=== PATIENT | male | born 1975 | race American Indian/Alaskan Native ===

== ENCOUNTER 2019-10-23 17:34 | Emergency (ER) | payer SELFPAY ==
--- NOTE | 2019-10-23 18:58 | Emergency Department Report ---
Blank Doc - Documentation Documentation: 43-year-old male that presents with right flank pain. This initial assessment/diagnostic orders/clinical plan/treatment(s) is/are subject to change based on patient's health status, clinical progression and re- assessment by fellow clinical providers in the ED. Further treatment and workup at subsequent clinical providers discretion. Patient/guardians urged not to elope from the ED as their condition may be serious if not clinically assessed and managed. Initial orders include: 1- Patient sent to [facility] for further evaluation and treatment 2- UA
[2019-10-23 19:44] LABS: Basophils # (Auto) 0.1 K/mm3 (0.0-0.1); Basophils % (Auto) 0.9 % (0.0-1.8); Eosinophils # (Auto) 0.2 K/mm3 (0.0-0.4); Eosinophils % (Auto) 2.3 % (0.0-4.3); Hemoglobin 12.8 gm/dl (11.8-15.2); Lymphocytes # (Auto) 2.7 K/mm3 (1.2-5.4); Lymphocytes % (Auto) 30.2 % (13.4-35.0); Mean Corpuscular HGB Conc 34 % (32-34); Mean Corpuscular Volume 85 fl (84-94); Monocytes # (Auto) 0.7 K/mm3 (0.0-0.8); Monocytes % (Auto) 7.4 % (0.0-7.3); Platelet Count 231 K/mm3 (140-440); Red Blood Count 4.47 M/mm3 (3.65-5.03); Red Cell Distribution Width 14.2 % (13.2-15.2)
[2019-10-23 20:01] LABS: Albumin 3.8 g/dL (3.9-5); Calcium 9.4 mg/dL (8.4-10.2)
[2019-10-23 21:24] LABS: Bilirubin,Urine NEG (Negative); Blood,Urine SM (Negative); Color,Urine Yellow (Yellow); Urobilinogen,Urine < 2.0 mg/dL (<2.0)
[2019-10-23] MEDS ORDERED: MORPHINE 4 MG/1 ML INJ IV ONE (23:10)
[2019-10-23] MEDS ORDERED: ONDANSETRON 4 MG/2 ML INJ IV ONE (23:10)
[2019-10-23] MEDS ORDERED: SODIUM CHLORIDE 0.9% 1000 ML 1,000 ML IV ONE (23:10)
--- NOTE | 2019-10-24 00:07 | Emergency Department Report ---
ED Abdominal Pain HPI - General Chief Complaint: Back Pain/Injury Stated Complaint: BACK PAIN, STOMACH Time Seen by Provider: 10/23/19 18:56 Source: patient Mode of arrival: Ambulatory Limitations: No Limitations - History of Present Illness Initial Comments: Mr. Mallory is a 43 y/o aam with hx of DMII, and HTN ,who presents of flank, back , and abd pain x 4 days hx of same 6 months, ago pt complains of associated nausea and vomiiting, symptoms are exacerbated by po intake, symptoms are relieved by nothing tried. pt denies fever or chills. MD Complaint: abdominal pain, flank pain Onset/Timin -: days(s) Location: R flank Radiation: back Migration to: no migration Severity: moderate Severity scale (0 -10): 6 Quality: aching, sharp Consistency: intermittent Improves With: nothing Worsens With: eating, movement, other (voiding) Associated Symptoms: nausea, vomiting, dysuria - Related Data Previous Rx's Medication Instructions Recorded Last Taken Type Ciprofloxacin HCl [Ciprofloxacin 500 mg PO BID 10 Days #20 tab 10/24/19 Unknown Rx TAB] Omeprazole 40 mg PO DAILY #30 capsule. 10/24/19 Unknown Rx Allergies Allergy/AdvReac Type Severity Reaction Status Date / Time No Known Allergies Allergy Unverified 10/23/19 23:46 ED Review of Systems ROS: Stated complaint: BACK PAIN, STOMACH Other details as noted in HPI Constitutional: denies: chills, fever Eyes: denies: eye pain, eye discharge, vision change ENT: denies: ear pain, throat pain Respiratory: denies: cough, shortness of breath, wheezing Cardiovascular: denies: chest pain, palpitations Endocrine: no symptoms reported Gastrointestinal: abdominal pain, nausea, vomiting. denies: diarrhea, constipation, melena Genitourinary: urgency, dysuria, frequency. denies: hematuria, discharge Musculoskeletal: back pain Skin: denies: rash, lesions Neurological: denies: headache, weakness, paresthesias Psychiatric: denies: anxiety, depression Hematological/Lymphatic: denies: easy bleeding, easy bruising ED Past Medical Hx - Past Medical History Previous Medical History?: Yes Hx Diabetes: Yes - Surgical History Past Surgical History?: No - Social History Smoking Status: Never Smoker Substance Use Type: None - Medications Home Medications: Home Medications Medication Instructions Recorded Confirmed Last Taken Type Ciprofloxacin HCl [Ciprofloxacin 500 mg PO BID 10 Days #20 tab 10/24/19 Unknown Rx TAB] Omeprazole 40 mg PO DAILY #30 capsule. 10/24/19 Unknown Rx ED Physical Exam - General Limitations: No Limitations General appearance: alert, in no apparent distress - Head Head exam: Present: atraumatic, normocephalic, normal inspection - Eye Eye exam: Present: normal appearance, PERRL, EOMI Pupils: Present: normal accommodation - ENT ENT exam: Present: mucous membranes moist - Neck Neck exam: Present: normal inspection, tenderness, full ROM. Absent: lymphad enopathy - Respiratory Respiratory exam: Present: normal lung sounds bilaterally. Absent: respiratory distress, wheezes, stridor, chest wall tenderness - Cardiovascular Cardiovascular Exam: Present: regular rate, normal rhythm, normal heart sounds. Absent: systolic murmur, diastolic murmur, rubs, gallop - GI/Abdominal GI/Abdominal exam: Present: soft, tenderness (super pubic right flank), normal bowel sounds. Absent: distended, guarding, rebound, rigid, bruit, hernia - Rectal Rectal exam: Present: deferred - Extremities Exam Extremities exam: Present: normal inspection, full ROM, normal capillary refill. Absent: tenderness - Back Exam Back exam: Present: normal inspection, full ROM, tenderness, CVA tenderness (R). Absent: CVA tenderness (L), vertebral tenderness, rash noted - Neurological Exam Neurological exam: Present: alert, oriented X3, CN II-XII intact, normal gait - Psychiatric Psychiatric exam: Present: normal affect, normal mood - Skin Skin exam: Present: warm, dry, intact, normal color. Absent: rash ED Course Vital Signs 10/23/19 10/23/19 18:56 23:46 Temperature 97.9 F Pulse Rate 97 H Respiratory 18 16 Rate Blood Pressure 167/112 O2 Sat by Pulse 98 Oximetry ED Medical Decision Making - Lab Data Result diagrams: 10/23/19 19:13 10/23/19 19:13 Labs 10/23/19 10/23/19 10/23/19 19:13 19:13 Unknown WBC 8.9 RBC 4.47 Hgb 12.8 Hct 38.0 MCV 85 MCH 29 MCHC 34 RDW 14.2 Plt Count 231 Lymph % (Auto) 30.2 [place] % (Auto) 7.4 H Eos % (Auto) 2.3 Baso % (Auto) 0.9 Lymph # 2.7 [place] # 0.7 Eos # 0.2 Baso # 0.1 Seg Neutrophils % 59.2 Seg Neutrophils # 5.3 Sodium 140 Potassium 4.3 Chloride 100.2 Carbon Dioxide 25 Anion Gap 19 BUN 21 H Creatinine 1.9 H Estimated GFR 39 BUN/Creatinine Ratio 11 Glucose 167 H Calcium 9.4 Total Bilirubin 0.60 AST 16 ALT 17 Alkaline Phosphatase 83 Total Protein 8.3 H Albumin 3.8 L Albumin/Globulin Ratio 0.8 Lipase 581 H Urine Color Yellow Urine Turbidity Clear Urine pH 5.0 Ur Specific [place] 1.016 Urine Protein 100 mg/dl Urine Glucose (UA) 150 Urine Ketones Neg Urine Blood Sm Urine Nitrite Neg Urine Bilirubin Neg Urine Urobilinogen < 2.0 Ur Leukocyte Esterase Neg Urine WBC (Auto) 8.0 H Urine RBC (Auto) 5.0 - Radiology Data Radiology results: report reviewed, image reviewed Findings Reporting MD: Jesús Larson Dictation Time: October 23, 2019 23:13 Structural Layout Worker: Not available Assistant Clinical Nurse Manager Date: CT abdomen pelvis wo con INDICATION / CLINICAL INFORMATION: RENAL STONE PROTOCOL!! Right sided flank / a bd pain.. TECHNIQUE: All CT scans at this location are performed using CT dose reduction for ALARA by means of automated exposure control. COMPARISON: None available. FINDINGS: No free fluid is seen in the abdomen. No urinary tract stones are present. High density material is seen in the gallbladder most likely representing numerous small stones. The liver, spleen, pancreas, adrenal glands and great vessels are normal. No enlarged mesenteric or retroperitoneal lymph nodes are seen In the pelvis, no free fluid is seen. No enlarged lymph nodes are identified. The bladder and the appendix are normal. IMPRESSION: 1. High density material in the gallbladder most likely rep resenting numerous small stones 2. No acute findings Signer Name: Jesús Larson MD FACR Signed: 10/23/2019 11:13 PM Workstation Name: [id number] - Medical Decision Making CT demonstrates gallstones, normal pancreas, no cholecystitis no colitis, Lipase 583, patient is tolerating p.o. intake without nausea vomiting. CBC is normal. UA positive for leukocytes. Plan Cipro, omeprazole, naproxen as needed pain, patient will follow-up with PCP in 2 to 3 days, patient given referral to [place] [facility]. Patient states pain is 1/10 at this time and ready f or discharge. Patient is DC to home in stable condition at this time. Critical care attestation.: If time is entered above; I have spent that time in minutes in the direct care of this critically ill patient, excluding procedure time. ED Disposition Clinical Impression: Mild dehydration Cholelithiasis Qualifiers: Cholelithiasis location: gallbladder Cholecystitis presence: without cholecystitis Biliary obstruction: without biliary obstruction Qualified Code(s): K80.20 - Calculus of gallbladder without cholecystitis without obstruction UTI (urinary tract infection) Qualifiers: Urinary tract infection type: acute cystitis Hematuria presence: without hematuria Qualified Code(s): N30.00 - Acute cystitis without hematuria Disposition: DC-01 TO HOME OR SELFCARE Is pt being admited?: No Does the pt Need Aspirin: No Condition: Stable Instructions: Cholelithiasis (ED), Dehydration (ED) Additional Instructions: take bp medication as prescribed, Stop ETOH, Take medications as prescribed, follolw up with Gastrenterology , follow up with your primary care doctor. hydrate as discussed. Prescriptions: Ciprofloxacin HCl [Ciprofloxacin TAB] 500 mg PO BID 10 Days #20 tab Omeprazole 40 mg PO DAILY #30 capsule. Referrals: PRIMARY CARE, [Primary Care Provider] - 3-5 Days Forms: Work/School Release Form(ED) Time of Disposition: 03:26
--- NOTE | 2019-10-24 00:17 | Cat Scan Report ---
CT abdomen pelvis wo con INDICATION / CLINICAL INFORMATION: RENAL STONE PROTOCOL!! Right sided flank / abd pain.. TECHNIQUE: All CT scans at this location are performed using CT dose reduction for ALARA by means of automated e xposure control. COMPARISON: None available. FINDINGS: No free fluid is seen in the abdomen. No urinary tract stones are present. High density material is s een in the gallbladder most likely representing numerous small stones. The liver, spleen, pancreas, a drenal glands and great vessels are normal. No enlarged mesenteric or retroperitoneal lymph nodes are seen In the pelvis, no free fluid is seen. No enlarged lymph nodes are identified. The bladder and the antonio endix are normal. IMPRESSION: 1. High density material in the gallbladder most likely representing numerous small stones 2. No acute findings Signer Name: Jesús Larson MD FACR Signed: 10/24/2019 12:13 AM Workstation Name: [id number]
[2019-10-24 04:40] VITALS: BP 158/98
== END 2019-10-24 04:25 | disposition home or self-care (01) ==
LOC: ED 17:34
DX: K80.20 Calculus of gallbladder without cholecystitis without obstruction (principal); N39.0 Urinary tract infection, site not specified; E86.0 Dehydration; E11.9 Type 2 diabetes mellitus without complications; Z79.899 Other long term (current) drug therapy
CPT/HCPCS: 36415; 74176; 80053; 81001; 83690; 85025; 87086; 96361; 96374; 96375; 99284; J2270; J2405; J7030

== ENCOUNTER 2020-12-18 01:48 | Emergency (ER) | payer SELFPAY ==
[2020-12-18] MEDS ORDERED: niCARdipine DRIP 40 MG/200 ML BAG IV ONE (02:10)
[2020-12-18] MEDS ORDERED: levETIRAcetam 1000 MG/NS 0.75% 1,000 MG/100 ML BAG IV ONE ×2 (02:10→03:00)
--- NOTE | 2020-12-18 02:12 | Emergency Department Report ---
HPI - General Time Seen by Provider: 12/18/20 01:53 - HPI HPI: [facility] Consult Note # Demographics Consult Type: Acute Stroke Level 1 (0-4.5 hrs) Patient Location: Emergency Room First Name: Napoleon Last Name: Mohamud Date of : 1975 Age: 45 Gender: Male Time of Initial Page ( Time): 12/18/2020, 01:50 Time of Return Call ( Time): 12/18/2020, 01:51 # HPI History: 45 yo hx of DM on insulin. EMS noted 2 hr history of right facial droop, difficulty speaking. # Scores Time of exam and NIHSS (): 12/18/2020, 02:09 Level of Consciousness 1a: [0] = Alert; keenly responsive LOC Questions 1b: [2] = Answers neither correctly LOC Commands 1c: [2] = Performs neither correctly Best Gaze 2: [0] = Normal Visual 3: [0] = No visual loss Facial Palsy 4: [0] = Normal symmetrical movements Motor Arm Left 5a: [0] = No drift Motor Arm Right 5b: [0] = No drift Motor Leg Left 6a: [0] = No drift Motor Leg Right 6b: [0] = No drift Limb Ataxia 7: [0] = Absent Sensory 8: [0] = Normal Best Language 9: [2] = Severe aphasia Dysarthria 10: [0] = Normal Extinction and Inattention 11: [0] = No abnormality NIHSS Total: 6 # Data Time Head CT personally read by me (): 12/18/2020, 01:[address]: hemorrhage # Assessment Impression: intracranial hemorrhage # Plan Thrombolytic/Intervention: NOT IV Thrombolytic or IA Intervention Thrombolytic Exclusion (< 3 hour window): ICH Intraarterial Exclusion: ICH Target Blood Pressure: SBP < 160 Additional Recommendations: transfer to neurosurgical center f/u CTA to rule out AVM or other vascular anomaly. keppra 1gm now SBP < 160 # Logistics Telemedicine: Interactive 2 way audio and visual telecommunication technology was utilized during this visit ED Past Medical Hx - Past Medical History Hx Diabetes: Yes - Social History Smoking Status: Never Smoker Substance Use Type: None - Medications Home Medications: Home Medications Medication Instructions Recorded Confirmed Last Taken Type Ciprofloxacin HCl [Ciprofloxacin 500 mg PO BID 10 Days #20 tab 03/24/20 Unknown Rx TAB] Omeprazole 40 mg PO DAILY #30 capsule. 10/24/19 Unknown Rx ED Review of Systems ROS: Stated complaint: STROKE Other details as noted in HPI Critical care attestation.: If time is entered above; I have spent that time in minutes in the direct care of this critically ill patient, excluding procedure time. ED Disposition Clinical Impression: Intracranial hemorrhage Disposition: DC/TX-70 ANOTHER TYPE HLTHCARE Is pt being admited?: No Does the pt Need Aspirin: No Condition: Stable
--- NOTE | 2020-12-18 02:19 | Emergency Department Report ---
ED Neuro Deficit HPI - General Stated Complaint: STROKE Time Seen by Provider: 12/18/20 01:53 Source: patient, EMS - History of Present Illness Initial Comments: Patient is 45 years old male with history of hypertension and diabetes. Patient brought to the emergency room as a code stroke. Patient symptoms started approximately 2 hours prior to coming to the emergency room with a sudden onset of inability to speak and right facial droop. Patient denied any headache or neck pain. Patient denied any visual changes. No ataxia. No extremity weakness. Patient immediately moved to CT for stat CT brain without contrast. Stroke telemetry neurology Dr. Coughlin immediately consulted. He examined the patient through video conference. CT brain showed intracranial bleed. He advised to start patient on Cardene drip and gave patient 1 g of Keppra and patient to be transferred to neurosurgery center. -: Sudden, hour(s) (2) Location: speech, right face Presenting Symptoms: Present: Facial Droop/Numbness, Unable to Speak Clearly History of same: No Place: home Context: sudden onset - Related Data Home Medications: Previous Rx's Medication Instructions Recorded Last Taken Type Ciprofloxacin HCl [Ciprofloxacin 500 mg PO BID 10 Days #20 tab 10/24/19 Unknown Rx TAB] Omeprazole 40 mg PO DAILY #30 capsule. 10/24/19 Unknown Rx Allergies/Adverse Reactions: Allergies Allergy/AdvReac Type Severity Reaction Status Date / Time No Known Allergies Allergy Verified 12/18/20 02:17 ED Review of Systems ROS: Stated complaint: STROKE Other details as noted in HPI Comment: All other systems reviewed and negative Constitutional: denies: chills, fever Respiratory: denies: cough, shortness of breath Cardiovascular: denies: chest pain, palpitations Gastrointestinal: denies: abdominal pain Musculoskeletal: denies: back pain Neurological: denies: headache, weakness ED Past Medical Hx - Past Medical History Hx Diabetes: Yes - Social History Smoking Status: Never Smoker Substance Use Type: None - Medications Home Medications: Home Medications Medication Instructions Recorded Confirmed Last Taken Type Ciprofloxacin HCl [Ciprofloxacin 500 mg PO BID 10 Days #20 tab 10/24/19 Unknown Rx TAB] Omeprazole 40 mg PO DAILY #30 capsule. 10/24/19 Unknown Rx ED Neuro Physical Exam - General General appearance: alert, in no apparent distress Suspected Stroke: Yes - Head Head exam: Present: atraumatic, normocephalic, normal inspection - Eye Eye exam: Present: normal appearance, PERRL - ENT ENT exam: Present: normal exam, normal orophraynx, mucous membranes moist - Neck Neck exam: Present: normal inspection, full ROM. Absent: tenderness, meningismus - Respiratory Respiratory exam: Present: normal lung sounds bilaterally - Cardiovascular Cardiovascular Exam: Present: regular rate, normal rhythm, normal heart sounds - GI/Abdominal GI/Abdominal exam: Present: soft, normal bowel sounds. Absent: distended, tenderness, guarding, rebound, rigid, organomegaly, mass, bruit, pulsatile mass, hernia - Extremities Exam Extremities exam: Present: normal inspection, full ROM, normal capillary refill. Absent: tenderness - Back Exam Back exam: Present: normal inspection, full ROM. Absent: CVA tenderness (R), CVA tenderness (L) - Neurological Exam Neurological exam: Present: alert, oriented X3. Absent: CN II-XII intact, motor sensory deficit - NIHSS Assessment Interval: Baseline 1a. Level of Consciousness: alert/keenly responsive 1b. LOC Questions: answers no questions correctly 1c. LOC Commands: performs tasks correctly 2. Best Gaze: normal 3. Visual: no visual loss 4. Facial Palsy: partial paralysis 5b. Motor Arm Right: no drift 5a. Motor Arm Left: no drift 6a. Motor Leg Left: no drift 6b. Motor Leg Right: no drift 7. Limb Ataxia: absent 8. Sensory: normal 9. Best Language: mute/global aphasia 10. Dysarthria: normal 11. Extinction/Inattention: no abnormality Total Score: 7 Stroke Severity: Moderate Stroke - Psychiatric Psychiatric exam: Present: flat affect - Skin Skin exam: Present: warm, dry, intact ED Course Vital Signs 12/18/20 02:25 Temperature 99.1 F Pulse Rate 110 H Respiratory 16 Rate Blood Pressure 207/107 [Left] O2 Sat by Pulse 99 Oximetry - Consultations Consultation #1: 12/18/20 02:33 I discussed the patient with Dr. Thapa, neurologist at and he stated that they do not have any beds available and advised to try other facilities. - Lab Data Result diagrams: 12/18/20 02:24 Lab Results 12/18/20 Range/Units 02:24 WBC 10.7 (4.5-11.0) K/mm3 RBC 3.73 (3.65-5.03) M/mm3 Hgb 11.0 L (11.8-15.2) gm/dl Hct 31.7 L (35.5-45.6) % MCV 85 (84-94) fl MCH 29 (28-32) pg MCHC 35 H (32-34) % RDW 14.4 (13.2-15.2) % Plt Count 202 (140-440) K/mm3 Lymph % (Auto) 21.8 (13.4-35.0) % [place] % (Auto) 5.6 (0.0-7.3) % Eos % (Auto) 0.9 (0.0-4.3) % Baso % (Auto) 0.5 (0.0-1.8) % Lymph # (Auto) 2.3 (1.2-5.4) K/mm3 [place] # (Auto) 0.6 (0.0-0.8) K/mm3 Eos # (Auto) 0.1 (0.0-0.4) K/mm3 Baso # (Auto) 0.1 (0.0-0.1) K/mm3 Seg Neutrophils % 71.2 H (40.0-70.0) % Seg Neutrophils # 7.6 (1.8-7.7) K/mm3 - EKG Data -: EKG Interpreted by [place] EKG shows normal: sinus rhythm Rate: normal Interpretation: no acute changes - Radiology Data Radiology results: report reviewed - Medical Decision Making Patient is 45 years old male with history of hypertension and diabetes. Patient brought to the emergency room as a code stroke. Patient symptoms started approximately 2 hours prior to coming to the emergency room with a sudden onset of inability to speak and right facial droop. Patient denied any headache or neck pain. Patient denied any visual changes. No ataxia. No extremity weakness. Patient immediately moved to CT for stat CT brain without contrast. Stroke telemetry neurology Dr. Coughlin immediately consulted. He examined the patient through video conference. CT brain showed intracranial bleed. He advised to start patient on Cardene drip and gave patient 1 g of Keppra and patient to be transferred to neurosurgery center. I discussed the patient with Dr. Tripp at [facility], he accepted the patient to be transfer for further management. Critical Care Time: Yes Critical care time in (mins) excluding proc time.: 45 Critical care attestation.: If time is entered above; I have spent that time in minutes in the direct care of this critically ill patient, excluding procedure time. ED Disposition Clinical Impression: Intracranial hemorrhage Disposition: DC/TX-70 ANOTHER TYPE HLTHCARE Is pt being admited?: No Condition: Stable Referrals: PRIMARY CARE, [Primary Care Provider] - 3-5 Days
[2020-12-18] MEDS ORDERED: niCARdipine DRIP 40 MG/200 ML BAG ONE (02:20)
--- NOTE | 2020-12-18 02:26 | Cat Scan Report ---
CT HEAD WITHOUT CONTRAST INDICATION : Stroke symptoms. TECHNIQUE: Axial, coronal and sagittal CT imaging was performed from the skull apex through the skul l base without contrast. All CT scans at this location are performed using CT dose reduction for ALA RA by means of automated exposure control. COMPARISON: None available. FINDINGS: PARENCHYMA: Acute intraparenchymal hematoma is seen along the left parietal lobe on image 20 of seri es 2 measuring 2.5 x 2.1 cm with mild surrounding edema. No other sites of hemorrhage. No extra-axial collection. No mass or midline shift. VENTRICLES: Symmetric and normal in size. SOFT TISSUES: No significant abnormality of the included soft tissues/orbits. BONES: No acute osseous abnormality. SINUSES: No significant abnormality. ADDITIONAL FINDINGS: None. IMPRESSION: Acute left parietal intraparenchymal hemorrhage as above. CODE STROKE: Time of Communication (REALTIME REPORTER/CDT): 01:20 Licensed Practitioner Receiving Report: Dr. Alvarez Signer Name: Gaetano Walker MD Signed: 12/18/2020 2:21 AM Workstation Name: [id number]
--- NOTE | 2020-12-18 02:33 | XRay Report ---
CHEST 1 VIEW 12/18/2020 1:23 AM INDICATION / CLINICAL INFORMATION: stroke. COMPARISON: None available. FINDINGS: SUPPORT DEVICES: None. HEART / MEDIASTINUM: No significant abnormality. LUNGS / PLEURA: Clear lungs. No significant pleural effusion. No pneumothorax. ADDITIONAL FINDINGS: No significant additional findings. IMPRESSION: 1. No acute abnormality of the chest. Signer Name: Gaetano Walker MD Signed: 12/18/2020 2:29 AM Workstation Name: [id number]
[2020-12-18 02:42] LABS: Basophils # (Auto) 0.1 K/mm3 (0.0-0.1); Basophils % (Auto) 0.5 % (0.0-1.8); Eosinophils # (Auto) 0.1 K/mm3 (0.0-0.4); Eosinophils % (Auto) 0.9 % (0.0-4.3); Hematocrit 31.7 % (35.5-45.6); Lymphocytes # (Auto) 2.3 K/mm3 (1.2-5.4); Lymphocytes % (Auto) 21.8 % (13.4-35.0); Mean Corpuscular HGB Conc 35 % (32-34); Mean Corpuscular Volume 85 fl (84-94); Monocytes # (Auto) 0.6 K/mm3 (0.0-0.8); Monocytes % (Auto) 5.6 % (0.0-7.3); Platelet Count 202 K/mm3 (140-440); Red Blood Count 3.73 M/mm3 (3.65-5.03); Red Cell Distribution Width 14.4 % (13.2-15.2)
[2020-12-18 02:52] LABS: INR 0.98 (0.87-1.13)
--- NOTE | 2020-12-18 02:52 | Cat Scan Report ---
CT angio neck INDICATION / CLINICAL INFORMATION: 45 years Male; CODE STROKE PROTOCOL!! Stroke-Like Symptoms. TECHNIQUE: Thin cut axial images obtained through the head during IV bolus contrast administration. S agittal, coronal, and 3 plane MIP reconstructions performed by the technologist. NASCET type criteria used evaluate stenoses. All CT scans at this location are performed using CT dose reduction for ALAR A by means of automated exposure control. COMPARISON: None available. FINDINGS: CAROTID ARTERIES: There is minimal atherosclerotic plaque with small focus of calcification involving right carotid bifurcation. However, there is no significant stenosis of the carotid arteries bilater ally by NASCET criteria. There are small focus of calcification involving distal left common carotid artery also without significant stenosis. VERTEBRAL ARTERIES: The motion and beam hardening degrade the image quality. However, there is no sig nificant stenosis involving the vertebral arteries bilaterally. ARCH: There is no significant stenosis involving arch vessels. ADDITIONAL FINDINGS: Remainder of the surrounding soft tissues are grossly normal. IMPRESSION: There is no significant stenosis involving carotid or vertebral arteries by NASCET criteria. Signer Name: Enmanuel Rees MD Signed: 12/18/2020 2:47 AM Workstation Name: [id number]
[2020-12-18 02:53] LABS: Partial Thromboplastin Time 26.5 Sec. (24.2-36.6); Thrombin Time 18.3 Sec. (15.1-19.6)
[2020-12-18 02:59] LABS: Creatine Kinase MB 3.8 ng/mL (0.0-4.0)
[2020-12-18 03:00] LABS: Calcium 8.1 mg/dL (8.4-10.2)
[2020-12-18 03:01] LABS: Alanine Aminotransferase 14 units/L (7-56); Albumin 3.6 g/dL (3.9-5)
[2020-12-18 03:02] LABS: Bilirubin,Direct < 0.2 mg/dL (0-0.2)
--- NOTE | 2020-12-18 03:07 | Cat Scan Report ---
CT angio head INDICATION / CLINICAL INFORMATION: 45 years Male; CODE STROKE PROTOCOL!! Stroke-Like Symptoms. TECHNIQUE: Thin cut axial images obtained through the head during IV bolus contrast administration. S agittal, coronal, and 3 plane MIP reconstructions performed by the technologist. NASCET type criteria used evaluate stenoses. Automated exposure control utilized for radiation reduction purposes. COMPARISON: None available. FINDINGS: INTERNAL CAROTID ARTERIES: There is no significant focal stenosis involving distal internal carotid a rteries by NASCET criteria. VERTEBROBASILAR SYSTEM: There are foci of calcification involving proximal intracranial vertebral art eries without significant stenosis at. The basilar artery is unremarkable without focal narrowing. CEREBRAL ARTERIES: There is no significant stenosis involving the proximal cerebral arteries or adjac ent segments. The findings correlate with the earlier CT head demonstrating an acute hemorrhage along the posterior left frontal lobe. However, this finding appears to increase in size given the short interval curren tly measuring 2.4 cm AP by 2.6 cm transverse compared to 2.1 x 2.4 cm in respective projections on th e earlier study. Additionally, there are not small foci of relative increased attenuation along the i nferior portion which appears reflect extravasation of contrast and active bleeding. There is continu ed mass effect with surrounding edema and sulcal effacement. The findings also result in mild displac ement of the vessels within this region. ANEURYSM: There is no clear CTA evidence of intracranial aneurysm. ADDITIONAL FINDINGS: There is again note of irregular dural calcification along the frontal convexiti es of bilaterally. IMPRESSION: There appears be mild interval increase in size of the acute hematoma along the posterior left fronta l lobe from the earlier CT head as detailed above. There are small foci of increased attenuation dieter g the inferior margin of the hematoma indicative of extravasation of contrast and active bleeding. There is no significant focal stenosis involving intracranial vessels. The above hematoma results in milder displacement of the vessels along the lateral frontoparietal region. Signer Name: Enmanuel Rees MD Signed: 12/18/2020 3:02 AM Workstation Name: [id number]
[2020-12-18 03:38] LABS: Chol/HDL Ratio 3.55 %
[2020-12-18 03:53] VITALS: BP 154/98
--- NOTE | 2020-12-18 10:51 | Electrocardiograph Report ---
[facility] Test Date: 2020-12-18 Test Time: 02:14:20 Pat Name: CHER SNEED Department: Room: Gender: M Consultants Intern: JONNY : 1975 Requested By: STAR MASSEY Order Number: [id number] Reading MD: Magdaleno Espinosa Measurements Intervals [place] Rate: 111 P: 66 [place]: 118 QRS: 9 QRSD: 107 T: 185 QT: 339 QTc: 463 Interpretive Statements Sinus tachycardia Multiple ventricular premature complexes Probable left atrial enlargement LVH with secondary repolarization abnormality No previous ECG available for comparison Electronically Signed On 12-18-2020 10:51:15 EDT by Magdaleno Espinosa
== END 2020-12-18 04:10 | disposition other institution (70) ==
LOC: ED 01:48
DX: I62.9 Nontraumatic intracranial hemorrhage, unspecified (principal); I10 Essential (primary) hypertension; E11.9 Type 2 diabetes mellitus without complications; Z79.899 Other long term (current) drug therapy
CPT/HCPCS: 36415; 70450; 70496; 70498; 71045; 80048; 80061; 80076; 82550; 82553; 82962; 84484; 85025; 85610; 85670; 85730; 93005; 96365; 96375; 99291; J1953; Q9967